=== PATIENT | male | born 2000 | race Caucasian/White ===

== ENCOUNTER 2022-08-19 08:12 | Emergency (ER) | payer OTHER, SELFPAY ==
[2022-08-19 08:13] VITALS: BP 139/97; PULSE 56; RESP 17; TEMP 36.7; O2SAT 96; BMI 26.3
--- NOTE | 2022-08-19 08:21 | XR_ITS ---
WS: [id number] Exam: XR chest 1V portable [id number] Date/Time of Exam: 08/19/2022 8:46 AM Reason For Exam: Syncopal episode Findings: The lungs are clear and fully expanded. Costophrenic angles are sharp. No infiltrates. Bronchovascula r relief appears normal. Cardiac silhouette is unremarkable. Bony elements are intact. XR/XR chest 1V portable [id number] IMPRESSION: Unremarkable chest radiograph.
--- NOTE | 2022-08-19 08:22 | ED_ITS ---
Documented by User: MORAIMA Martin 08/20/22 08:51 HPI - Syncope General: Chief Complaint: Syncope Stated Complaint: syncope episode Time Seen by Provider: 08/19/22 08:18 History of Present Illness: Patient is a 22-year-old male that comes to the ED via EMS for syncopal episode. Patient was given 600 mL of lactated Ringer's by EMS while in route. Patient states he was up and ambulating around at work today. He started feeling dizzy and he sat down. Patient unsure of what happened next but says he woke up and EMS was there at the scene tending to him. One of patient's fellow coworkers is present here in the ED and witnessed syncopal episode. Coworker states that patient went and sat down and then fell out of his chair and hit the ground on h is left side and possibly left side of head. Denies any seizure-like activity and he states that patient was unconscious for possibly 1 to 3 minutes. When patient came to he was little disoriented. Here in the ED patient says he feels back to normal. He has never had a syncopal episode before in the past. Denies any preceding symptoms besides dizziness. He has no chronic medical conditions. Denies any energy drink use today. Denies any headache, chest pain, shortness of breath, nausea, vision changes or any neurological symptoms. Associated symptoms: Deny abdominal pain, chest pain, fever(s), headache(s) or nausea Review of Systems Const: Denies: fever(s), chills or fatigue Eyes: Denies: change in vision or eye discomfort ENMT: Denies: throat pain, odynophagia, nasal discharge or nasal congestion Card: Reports: syncope; Denies: chest pain, palpitations, edema, swelling of feet/ankles, dyspnea on exertion or orthopnea Resp: Denies: dyspnea, productive cough or non-productive cough GI: Denies: abdominal pain, nausea, vomiting, diarrhea, constipation or hematochezia : Denies: flank pain, difficulty urinating, dysuria or hematuria Musc: Denies: neck pain, back pain or extremity swelling Skin/Breast: Denies: rash or new lesions Neuro: Reports: dizziness; Denies: headache(s), numbness in extremities or weakness in extremities [facility] ED PFSH: Medical History (Updated 08/19/22 @ 09:39 by MORAIMA Martin) No pertinent family history No pertinent past medical history Physical Exam Const: COMMON NORMALS: no acute distress, patient oriented x3, healthy appearing and alert HENMT: COMMON NORMALS: normocephalic HEAD & SCALP: normocephalic MOUTH: Normal oral and palatal mucosa present THROAT: posterior oropharynx normal and uvula midline Neck/C-Spine: COMMON NORMALS: supple GENERAL: Yes normal visual inspection Resp: COMMON NORMALS: normal respiratory effort, No retractions, No use of accessory muscles and clear to auscultation bilaterally AUSCULTATION: clear to auscultation bilaterally Cardio: COMMON NORMALS: regular rate, regular rhythm, S1 normal heart sound present, S2 normal heart sound present, No gallops present (Cardio), No clicks present (Cardio), No murmurs present (Cardio) and Peripheral pulses 2+ throughout RATE: regular rate RHYTHM: regular rhythm HEART SOUNDS: S1 normal heart sound present and S2 normal heart sound present PERIPHERAL PULSES: Peripheral pulses 2+ throughout GI: COMMON NORMALS: Normal to inspection, nondistended, normoactive bowel sounds present, Soft to palpation, non-tender and no masses PALPATION: Yes Soft to palpation : COMMON NORMALS: Yes no CVA tenderness BLADDER/KIDNEY EXAM: Yes no CVA tenderness Back/Pelvis: COMMON NORMALS: no CVA tenderness Extremity: COMMON NORMALS: normal to inspection Neuro: COMMON NORMALS: patient oriented x3, CN's II-XII intact bilaterally, moves all extremities, no focal motor deficits and no sensory deficits noted SENSORIUM/ORIENTATION: Yes alert COORDINATION/BALANCE: [id number]-[id number]-sltr test normal MOTOR EXAM: 5/5 motor strength present throughout COORDINATION: [id number]-rl-rila test normal Skin: GENERAL SKIN EXAM: dry skin Course Vital Signs: Vital signs: Vital Signs Temperature 98.1 F 08/19/22 08:13 Pulse Rate 57 L 08/19/22 09:46 Respiratory Rate 16 08/19/22 09:46 Blood Pressure 141/84 08/19/22 09:46 Pulse Oximetry 98 08/19/22 09:46 Oxygen Delivery Me thod Room Air 08/19/22 09:18 MDM - Syncope Medical Decision Making Patient is a 22-year-old male that comes to the ED via EMS for syncopal episode. Patient was given 600 mL of lactated Ringer's by EMS while in route. Patient states he was up and ambulating around at work today. He started feeling dizzy and he sat down. Patient unsure of what happened next but says he woke up and EMS was there at the scene tending to him. One of patient's fellow coworkers is present here in the ED and witnessed syncopal episode. Coworker states that patient went and sat down and then fell out of his chair and hit the ground on his left side and possibly left side of head. Denies any seizure-like activity and he states that patient was unconscious for possibly 1 to 3 minutes. When patient came to he was little disoriented. Here in the ED patient says he feels back to normal. He has never had a syncopal episode before in the past. Denies any preceding symptoms besides dizziness. He has no chronic medical conditions. Denies any energy drink use today. Denies any headache, chest pain, shortness of breath, nausea, vision changes or any neurological symptoms. Vitals are stable. Exam patient is benign and neuro exam shows no deficits. Labs are unremarkable, CT of head shows no acute intracranial findings. EKG shows no acute findings. I told patient about CT findings of chronic sinusitis he said he has been dealing with sinus congestion and pain in his entire life. He has not seen an ENT specialist before. I told him when he gets back home to contact the PCP to get a referral to an ENT doctor for follow-up on chronic sinusitis. Patient was discharged home with syncopal episode and chronic sinusitis. He was sent home with a prescription for an antibiotic and steroid. Return ED precautions given. Patient is to agree with plan. Medical Records I reviewed the patient's medical records. Lab Data I reviewed the patient's lab results. 08/19/22 08:21 08/19/22 08:21 Radiology Impressions Chest X-Ray 08/19/22 08:21 IMPRESSION: Unremarkable chest radiograph. Head CT 08/19/22 08:39 IMPRESSION: 1. No evidence of intracranial hemorrhage or mass effect 2. Normal collazo-white differentiation. 3. Complete opacification visualized paranasal sinuses with chronic bony remodeling compatible with chronic sinusitis. Complete opacification of frontal sinuses and ethmoid air cells and sphenoid sinuses. Maxillary sinuses not included on this study. Recommend ENT consultation. 4. 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 5. No acute intracranial findings. Notified MORAIMA Martin at 08/19/2022 9:23 AM. Laboratory Results WBC 4.8 10^3/uL (4.5-13.0) 08/19/22 08:21 RBC 3.94 10^6/uL (4.1-5.3) L 08/19/22 08:21 Hgb 11.7 g/dL (11.7-16.6) 08/19/22 08:21 Hct 35.9 % (42.0-52.0) L 08/19/22 08:21 MCV 91.1 fl (80-94) 08/19/22 08:21 MCH 29.7 pg (28.0-34.0) 08/19/22 08:21 MCHC 32.6 g/dL (30.0-36.0) 08/19/22 08:21 RDW 12.6 % (12.1-15.1) 08/19/22 08:21 Plt Count 234 10^3/cmm (130-400) 08/19/22 08:21 MPV 10.0 fL (7.4-10.4) 08/19/22 08:21 Neut % (Auto) 43.1 % 08/19/22 08:21 Lymph % (Auto) 34.3 % 08/19/22 08:21 [place] % (Auto) 7.8 % 08/19/22 08:21 Eos % (Auto) 13.5 % 08/19/22 08:21 Baso % (Auto) 1.3 % 08/19/22 08:21 Neut # (Auto) 2.05 10^3/uL (1.8-8.0) 08/19/22 08:21 Lymph # (Auto) 1.6 10^3/uL (1.5-6.5) 08/19/22 08:21 [place] # (Auto) 0.4 10^3/uL (0.2-0.9) 08/19/22 08:21 Eos # (Auto) 0.6 10^3/uL (0.0-0.8) 08/19/22 08:21 Baso # (Auto) 0.1 10^3/uL (0.0-0.1) 08/19/22 08:21 Nucleated RBC % (auto) 0 % 08/19/22 08:21 Nucleated RBCs # 0.0 /100WBC 08/19/22 08:21 Sodium 137 mmol/L (136-145) 08/19/22 08:21 Potassium 4.2 mmol/L (3.5-5.1) 08/19/22 08:21 Chloride 102 mmol/L (98-107) 08/19/22 08:21 Carbon Dioxide 28 mmol/L (22-29) 08/19/22 08:21 Anion Gap 11.2 (5-19) 08/19/22 08:21 BUN 10 mg/dL (6-20) 08/19/22 08:21 Creatinine 0.8 mg/dL (0.7-1.2) 08/19/22 08:21 GFR Calculation 123.2 mL/min (90-130) 08/19/22 08:21 Glucose 88 mg/dL (65-115) 08/19/22 08:21 Calculated Osmolality 282 mOsm/kg (285-295) L 08/19/22 08:21 Calcium 9.1 mg/dL (8.5-10.5) 08/19/22 08:21 Total Bilirubin 0.4 mg/dL (0.15-1.2) 08/19/22 08:21 AST 16 U/L (0-40) 08/19/22 08:21 ALT 19 U/L (0-41) 08/19/22 08:21 Alkaline Phosphatase 52 U/L (40-130) 08/19/22 08:21 Troponin T Gen 5 ng/L 6 ng/L (0-15) 08/19/22 08:21 Total Protein 6.2 g/dL (6.6-8.7) L 08/19/22 08:21 Albumin 4.0 g/dL (3.5-5.2) 08/19/22 08:21 Globulin 2.2 g/dL (1.3-4.6) 08/19/22 08:21 EKG Data EKG 1: EKG interpretation date: 08/19/22 Interpretation: Sinus bradycardia, 55 bpm, no ST segment elevation or depression seen. Early repolarization noted Discharge Plan Discharge Patient Disposition: Home Clinical Impression: Episode of syncope Qualifiers: Syncope type: vasovagal syncope Qualified Code(s): R55 - Syncope and collapse Chronic sinusitis Qualifiers: Sinusitis location: unspecified location Qualified Code(s): J32.9 - Chronic sinusitis, unspecified Condition: Stable Prescriptions: New amoxicillin-pot clavulanate 500-125 mg tablet 1 tab PO BID 7 Days Qty: 14 0RF methylprednisolone 4 mg tablets,dose pack See Rx Instructions .ROUTE .COMPLEX Qty: 21 0RF Rx Instructions: orally per package directions Discharge Orders: Discharge ED (Routine); Ordered 08/19/22 Ordered By: Brien Blandon Discharge Diet: Regular Discharge Activity: Increase activity as tolerated Patient Instructions: Syncope (DC), Sinusitis - Chronic Activity Restrictions/Additional Instructions: Follow-up with medical provider as directed in the next 5 to 7 days for reevaluation. Talk to your primary care doctor about getting you referred to an ENT doctor for follow-up on chronic sinusitis. Make sure you drink plenty of fluids and stay hydrated. Take medications as prescribed. Return to the ER or your medical provider if condition worsens. Please read and understand discharge instructions. Thank you for choosing [facility] for your healthcare needs today. Please realize this is an emergency room and that we are providing you with a medical screening exam and this may not be complete and all inclusive of all the testing and or work up that you may need to determine your ailment or severity of your illness. It is very important that you follow up as instructed or that you return to the Emergency Department should you have concerns or if your condition changes or worsens in any way. Stand Alone Forms: Work/School Release Coding Level of Care Code ED Oil Well Logging Engineer for Chg Fwd Documented by User: Rajeev Winters DO 08/20/22 08:54 HPI - Syncope General: Chief Complaint: Syncope Stated Complaint: syncope episode Time Seen by Provider: 08/19/22 08:18 PFS ED PFSH: Medical History (Updated 08/19/22 @ 09:39 by MORAIMA Martin) No pertinent family history No pertinent past medical history Course Vital Signs: Vital signs: Vital Signs Temperature 98.1 F 08/19/22 08:13 Pulse Rate 57 L 08/19/22 09:46 Respiratory Rate 16 08/19/22 09:46 Blood Pressure 141/84 08/19/22 09:46 Pulse Oximetry 98 08/19/22 09:46 Oxygen Delivery Me thod Room Air 08/19/22 09:18 MDM - Syncope Medical Decision Making Patient is a 22-year-old male that comes to the ED via EMS for syncopal episode. Patient was given 600 mL of lactated Ringer's by EMS while in route. Patient states he was up and ambulating around at work today. He started feeling dizzy and he sat down. Patient unsure of what happened next but says he woke up and EMS was there at the scene tending to him. One of patient's fellow coworkers is present here in the ED and witnessed syncopal episode. Coworker states that p atient went and sat down and then fell out of his chair and hit the ground on his left side and possibly left side of head. Denies any seizure-like activity and he states that patient was unconscious for possibly 1 to 3 minutes. When patient came to he was little disoriented. Here in the ED patient says he feels back to normal. He has never had a syncopal episode before in the past. Denies any preceding symptoms besides dizziness. He has no chronic medical conditions. Denies any energy drink use today. Denies any headache, chest pain, shortness of breath, nausea, vision changes or any neurological symptoms. Vitals are stable. Exam patient is benign and neuro exam shows no deficits. Labs are unremarkable, CT of head shows no acute intracranial findings. EKG shows no acute findings. I told patient about CT findings of chronic sinusitis he said he has been dealing with sinus congestion and pain in his entire life. He has not seen an ENT specialist before. I told him when he gets back home to contact the PCP to get a referral to an ENT doctor for follow-up on chronic sinusitis. Patient was discharged home with syncopal episode and chronic sinusitis. He was sent home with a prescription for an antibiotic and steroid. Return ED precautions given. Patient is to agree with plan. Chart reviewed and patient discussed with midlevel. Agree with assessment and plan. Lab Data 08/19/22 08:21 08/19/22 08:21 Radiology Impressions Chest X-Ray 08/19/22 08:21 IMPRESSION: Unremarkable chest radiograph. Head CT 08/19/22 08:39 IMPRESSION: 1. No evidence of intracranial hemorrhage or mass effect 2. Normal collazo-white differentiation. 3. Complete opacification visualized paranasal sinuses with chronic bony remodeling compatible with chronic sinusitis. Complete opacification of frontal sinuses and ethmoid air cells and sphenoid sinuses. Maxillary sinuses not included on this study. Recommend ENT consultation. 4. 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 5. No acute intracranial findings. Notified MORAIMA Martin at 08/19/2022 9:23 AM. Laboratory Results WBC 4.8 10^3/uL (4.5-13.0) 08/19/22 08:21 RBC 3.94 10^6/uL (4.1-5.3) L 08/19/22 08:21 Hgb 11.7 g/dL (11.7-16.6) 08/19/22 08:21 Hct 35.9 % (42.0-52.0) L 08/19/22 08:21 MCV 91.1 fl (80-94) 08/19/22 08:21 MCH 29.7 pg (28.0-34.0) 08/19/22 08:21 MCHC 32.6 g/dL (30.0-36.0) 08/19/22 08:21 RDW 12.6 % (12.1-15.1) 08/19/22 08:21 Plt Count 234 10^3/cmm (130-400) 08/19/22 08:21 MPV 10.0 fL (7.4-10.4) 08/19/22 08:21 Neut % (Auto) 43.1 % 08/19/22 08:21 Lymph % (Auto) 34.3 % 08/19/22 08:21 [place] % (Auto) 7.8 % 08/19/22 08:21 Eos % (Auto) 13.5 % 08/19/22 08:21 Baso % (Auto) 1.3 % 08/19/22 08:21 Neut # (Auto) 2.05 10^3/uL (1.8-8.0) 08/19/22 08:21 Lymph # (Auto) 1.6 10^3/uL (1.5-6.5) 08/19/22 08:21 [place] # (Auto) 0.4 10^3/uL (0.2-0.9) 08/19/22 08:21 Eos # (Auto) 0.6 10^3/uL (0.0-0.8) 08/19/22 08:21 Baso # (Auto) 0.1 10^3/uL (0.0-0.1) 08/19/22 08:21 Nucleated RBC % (auto) 0 % 08/19/22 08:21 Nucleated RBCs # 0.0 /100WBC 08/19/22 08:21 Sodium 137 mmol/L (136-145) 08/19/22 08:21 Potassium 4.2 mmol/L (3.5-5.1) 08/19/22 08:21 Chloride 102 mmol/L (98-107) 08/19/22 08:21 Carbon Dioxide 28 mmol/L (22-29) 08/19/22 08:21 Anion Gap 11.2 (5-19) 08/19/22 08:21 BUN 10 mg/dL (6-20) 08/19/22 08:21 Creatinine 0.8 mg/dL (0.7-1.2) 08/19/22 08:21 GFR Calculation 123.2 mL/min (90-130) 08/19/22 08:21 Glucose 88 mg/dL (65-115) 08/19/22 08:21 Calculated Osmolality 282 mOsm/kg (285-295) L 08/19/22 08:21 Calcium 9.1 mg/dL (8.5-10.5) 08/19/22 08:21 Total Bilirubin 0.4 mg/dL (0.15-1.2) 08/19/22 08:21 AST 16 U/L (0-40) 08/19/22 08:21 ALT 19 U/L (0-41) 08/19/22 08:21 Alkaline Phosphatase 52 U/L (40-130) 08/19/22 08:21 Troponin T Gen 5 ng/L 6 ng/L (0-15) 08/19/22 08:21 Total Protein 6.2 g/dL (6.6-8.7) L 08/19/22 08:21 Albumin 4.0 g/dL (3.5-5.2) 08/19/22 08:21 Globulin 2.2 g/dL (1.3-4.6) 08/19/22 08:21 Discharge Plan Discharge Patient Disposition: Home Clinical Impression: Episode of syncope Qualifiers: Syncope type: vasovagal syncope Qualified Code(s): R55 - Syncope and collapse Chronic sinusitis Qualifiers: Sinusitis location: unspecified location Qualified Code(s): J32.9 - Chronic sinusitis, unspecified Condition: Stable Prescriptions: New amoxicillin-pot clavulanate 500-125 mg tablet 1 tab PO BID 7 Days Qty: 14 0RF methylprednisolone 4 mg tablets,dose pack See Rx Instructions .ROUTE .COMPLEX Qty: 21 0RF Rx Instructions: orally per package directions Discharge Orders: Discharge ED (Routine); Ordered 08/19/22 Ordered By: Brien Blandon Discharge Diet: Regular Discharge Activity: Increase activity as tolerated Patient Instructions: Syncope (DC), Sinusitis - Chronic Activity Restrictions/Additional Instructions: Follow-up with medical provider as directed in the next 5 to 7 days for re evaluation. Talk to your primary care doctor about getting you referred to an ENT doctor for follow-up on chronic sinusitis. Make sure you drink plenty of fluids and stay hydrated. Take medications as prescribed. Return to the ER or your medical provider if condition worsens. Please read and understand discharge instructions. Thank you for choosing [facility] for your healthcare needs today. Please realize this is an emergency room and that we are providing you with a medical screening exam and this may not be complete and all inclusive of all the testing and or work up that you may need to determine your ailment or severity of your illness. It is very important that you follow up as instructed or that you return to the Emergency Department should you have concerns or if your condition changes or worsens in any way. Stand Alone Forms: Work/School Release Coding Level of Care Code ED Oil Well Logging Engineer for Jerrod Schulte
--- NOTE | 2022-08-19 08:30 | ECG_ITS ---
[facility] Test Date: 2022-08-19 Pat Name: Bill Clarke Department: Room: Gender: Male Magazine Writer: : 2000 Requested By: Brien Blandon Order Number: [id number] Renee MD: Mark Anthony Potts M.D. Measurements Intervals [place] Rate: 55 P: 74 KS: 171 QRS: 69 QRSD: 106 T: 64 QT: 382 QTc: 367 Interpretive Statements SINUS BRADYCARDIA EARLY REPOLARIZATION [ST ELEVATION WITH NORMALLY INFLECTED T-WAVE] No previous ECG available for comparison Electronically Signed On 08-19-2022 10:10:33 CDT by Mark Anthony Potts M.D. [id number]
[2022-08-19 08:32] LABS: Basophils # 0.1 10^3/uL (0.0-0.1); Basophils % 1.3 %; Eosinophils # 0.6 10^3/uL (0.0-0.8); Eosinophils % 13.5 %; Hematocrit 35.9 % (42.0-52.0); Hemoglobin 11.7 g/dL (11.7-16.6); Lymphocytes # 1.6 10^3/uL (1.5-6.5); Lymphocytes % 34.3 %; Mean Corpuscular HGB Conc 32.6 g/dL (30.0-36.0); Mean Corpuscular Hemoglobin 29.7 pg (28.0-34.0); Mean Corpuscular Volume 91.1 fl (80-94); Monocytes # 0.4 10^3/uL (0.2-0.9); Monocytes % 7.8 %; Neutrophils # 2.05 10^3/uL (1.8-8.0); Neutrophils % 43.1 %; Nucleated Red Blood Cells % 0 %; Platelet Count 234 10^3/cmm (130-400); Red Blood Count 3.94 10^6/uL (4.1-5.3); Red Cell Distribution Width 12.6 % (12.1-15.1); White Blood Count 4.8 10^3/uL (4.5-13.0)
--- NOTE | 2022-08-19 08:39 | CT_ITS ---
WS: [id number] CT HEAD TECHNIQUE: Noncontrast CT of the head obtained from the skullbase to the vertex. CLINICAL INFORMATION: syncopal episode, fell from chair and hit ground COMPARISON: None. DLP: 1177.[address] scans at [facility] use at least one of these dose optimization techniques: automated e xposure control; mA and/or kV adjustment per patient size (includes targeted exams where dose is matc hed to clinical indication); or iterative reconstruction. FINDINGS: No evidence of intracranial hemorrhage or mass effect. Ventricular system and basal cisterns are beavers nt. No extra-axial fluid collections. No evidence of mass or mass effect. Normal collazo-white different iation. Mastoid air cells well aerated. Inspissated secretions with opacification the visualized paranasal si nuses. Complete opacification of the hypoplastic frontal sinuses. Near complete opacification ethmoid air cells. Complete opacification the sphenoid sinuses and sphenoid sinus ostia. CT/CT head wo con* [id number] IMPRESSION: 1. No evidence of intracranial hemorrhage or mass effect 2. Normal collazo-white differentiation. 3. Complete opacification visualized paranasal sinuses with chronic bony remod eling compatible with chronic sinusitis. Complete opacification of frontal sinu ses and ethmoid air cells and sphenoid sinuses. Maxillary sinuses not included on this study. Recommend ENT consultation. 4. Mastoid air cells are well aerated today with evidence of some chronic scle rosis likely due to prior mastoiditis. 5. No acute intracranial findings. Notified OMRAIMA Martin at 08/19/2022 9:23 AM.
[2022-08-19 08:47] LABS: Alanine Aminotransferase 19 U/L (0-41); Alkaline Phosphatase 52 U/L (40-130); Anion Gap 11.2 (5-19); Aspartate Amino Transferase 16 U/L (0-40); Blood Urea Nitrogen 10 mg/dL (6-20); Calcium 9.1 mg/dL (8.5-10.5); Carbon Dioxide 28 mmol/L (22-29); Chloride 102 mmol/L (98-107); Globulin 2.2 g/dL (1.3-4.6); Glomerular Filtration Rate 123.2 mL/min (90-130); Glucose 88 mg/dL (65-115); Osmolality Calculated 282 mOsm/kg (285-295); Potassium 4.2 mmol/L (3.5-5.1); Sodium 137 mmol/L (136-145); Total Bilirubin 0.4 mg/dL (0.15-1.2); Total Protein 6.2 g/dL (6.6-8.7)
[2022-08-19 08:49] LABS: Troponin T (5th) Once 6 ng/L (0-15)
--- NOTE | 2022-08-19 09:12 | PC.PHAR ---
pt states he takes no rx or otc medications
[2022-08-19 09:18] VITALS: BP 131/77; PULSE 73; RESP 16; O2SAT 96
[2022-08-19 09:46] VITALS: BP 141/84; PULSE 57; RESP 16; O2SAT 98
--- NOTE | 2022-08-22 12:31 | DCPLANNER ---
senior software development manager called patient due to no primary care physician - no answer at this time.
== END 2022-08-19 09:48 | disposition home or self-care (01) ==
PROVIDERS: Emergency Provider Physician Assistant
DX: R55 Syncope and collapse (principal); J32.9 Chronic sinusitis, unspecified
CPT/HCPCS: 70450; 71045; 80053; 84484; 85025; 93005; 99285